=== PATIENT | male | born 1975 | race Caucasian/White ===

== ENCOUNTER 2020-09-25 21:05 | Observation (INO) | payer SELFPAY ==
[2020-09-25] MEDS: sodium chloride 0.9% 1,000 ML 999 ML IV (21:05)
[2020-09-25 21:10] VITALS: PULSE 144; RESP 32; O2SAT 97; BMI 23.6
[2020-09-25 21:23] VITALS: BP 175/108; PULSE 132; RESP 20; O2SAT 97
[2020-09-25 21:25] VITALS: BP 175/108; PULSE 121; O2SAT 98
--- NOTE | 2020-09-25 21:25 | XRR_ITS ---
PROCEDURE INFORMATION: Exam: XR Chest Exam date and time: 09/25/2020 9:39 PM Age: 44 years old Clinical indication: Chest wall pain; Patient HX: PT not responsive - no history; Additional info: Chest pain TECHNIQUE: Imaging protocol: XR of the chest. Views: 1 view. Total images: 1 COMPARISON: No relevant prior studies available. FINDINGS: Lungs: No visible active interstitial or alveolar airspace disease. Pleural spaces: Unremarkable. No pleural effusion. No pneumothorax. Heart/Mediastinum: Cardiac structures and configuration with status post sternotomy chest and CABG. Bones/joints: Unremarkable. XR/XR chest 1V portable [id number] IMPRESSION: Nonacute.
--- NOTE | 2020-09-25 21:26 | ECG_ITS ---
[facility] Test Date: 2020-09-25 Pat Name: Ryan Lopez Department: Room: 250 Gender: Male [employer]: : 1975 Requested By: Pedro Ribeiro Order Number: [id number] Chinyere MD: Lance Hollis M.D. Measurements Intervals [place] Rate: 126 P: 76 NH: 144 QRS: 48 QRSD: 92 T: 75 QT: 293 QTc: 424 Interpretive Statements SINUS TACHYCARDIA INDETERMINATE AXIS No previous ECG available for comparison Electronically Signed On 09-26-2020 17:32:43 CDT by Lance Hollis M.D. [id number]
[2020-09-25] MEDS: LORazepam 2 mg/mL INJ 1 mL (21:27)
--- NOTE | 2020-09-25 21:37 | W.ED.CHESTPA ---
HPI - Chest Pain General: Chief Complaint: Chest Pain Stated Complaint: CP/Possible heart attack Time Seen by Provider: 09/25/20 21:09 History of Present Illness: HPI narrative: 44-year-old male brought in by family. Family states they were driving back to [place] after picking him up in [facility]. About 30 to 40 minutes prior to arrival patient complained of chest pain. Upon arrival patient was shaking vigorously and what appeared to be like a pseudoseizure as he was somewhat responsive to verbal stimuli. He was however was very contracted. Family reports that he is a drug abuser. With known use of methamphetamine. Is unsure when his last methamphetamine abuse was. Patient himself does not provide any information. Review of Systems General: Reports: ROS unobtainable due to medical condition Course Vital Signs: Vital signs: Vital Signs Pulse Rate 102 H 09/25/20 21:54 Respiratory Rate 15 09/25/20 21:54 Blood Pressure 137/88 09/25/20 21:54 Pulse Oximetry 95 09/25/20 21:54 MDM - Chest Pain MDM Narrative: Medical decision making narrative: Patient with likely meth amphetamine reaction. Patient with decreased responsiveness following Ativan and is fatigued. Patient's tachycardia improved to around the low 100s mid 90s with IV fluids. Patient with elevated blood sugar. Patient will be admitted to Dr. mary for further work-up and management Lab Data: Attestation: I reviewed the patient's lab results. Labs: Lab Results 09/25/20 09/25/20 09/25/20 Range/Units 21:21 21:21 21:21 WBC 10.2 H (4.0-10.0) 10^3/ uL RBC 5.17 (4.1-5.3) 10^6/u L Hgb 16.7 H (11.7-16.6) g/dL Hct 47.7 (42.0-52.0) % MCV 92.3 (80-94) fL MCH 32.3 (28.0-34.0) pg MCHC 35.0 (30.0-36.0) g/dL RDW 12.0 L (12.1-15.1) % Plt Count 273 (130-400) 10^3/c mm MPV 10.5 H (7.4-10.4) fL Neut % (Auto) 52.7 % Lymph % (Auto) 38.3 % [place] % (Auto) 7.0 % Eos % (Auto) 1.5 % Baso % (Auto) 0.2 % Neut # (Auto) 5.35 (1.8-7.7) 10^3/u L Lymph # (Auto) 3.9 (0.8-4.8) 10^3/u L [place] # (Auto) 0.7 (0.2-0.9) 10^3/u L Eos # (Auto) 0.2 (0.0-0.8) 10^3/u L Baso # (Auto) 0.0 (0.0-0.1) 10^3/u L Nucleated RBC % (a uto) 0 % Nucleated RBCs # 0.0 /100WBC Specimen Type Sample Site ABG pH (7.35-7.45) ABG pCO2 (35-45) mmHg ABG pO2 (80.0-100.0) mmH g ABG HCO3 (22-26) mmol/L ABG Base Excess (-2.0-2.0) mmol/ L Jluis Test Hematocrit (42-52) % O2 Delivery Device Physician Coding Specialist ID Sodium 137 (136-145) mmol/L Potassium 4.4 (3.5-5.1) mmol/L Chloride 97 L (98-107) mmol/L Carbon Dioxide 18 L (22-29) mmol/L Anion Gap 26.4 H (5-19) BUN 14 (6-20) mg/dL Creatinine 0.9 (0.7-1.2) mg/dL GFR Calculation 91.7 (90-130) mL/min Glucose 459 H (65-115) mg/dL Calculated Osmolal ity 305 H (285-295) mOsm/k g Calcium 9.3 (8.5-10.5) mg/dL Magnesium 2.0 (1.7-2.3) mg/dL Total Bilirubin 0.3 (0.15-1.2) mg/dL AST 14 (0-40) U/L ALT 18 (0-41) U/L Alkaline Phosphata se 145 H (40-130) IU/L Troponin T Baselin e 14 (0-15) ng/L Total Protein 7.3 (6.6-8.7) g/dL Albumin 4.6 (3.5-5.2) g/dL Globulin 2.7 (1.3-4.6) g/dL Urine Color (Yellow) Urine Appearance (CLEAR) Urine pH (5-7) Ur Specific Gravit y (1.005-1.030) Urine Protein (Negative) Urine Glucose (UA) (Normal) Urine Ketones (Negative) Urine Blood (Negative) Urine Nitrate (Negative) Urine Bilirubin (Negative) Urine Urobilinogen (Negative) mg/dL Ur Leukocyte Yoanna ase (Negative) Urine RBC (0-2) /hpf Urine WBC (0-5) /hpf Ur Squamous Epith Cells (0-5) /hpf Amorphous Sediment Urine Bacteria (NONE) /hpf Urine Opiates Scre en (Negative) ng/mL Ur Barbiturates Sc reen (Negative) ng/mL Ur Phencyclidine S crn (Negative) ng/mL Ur Amphetamines Sc reen (Negative) ng/mL U Benzodiazepines Scrn (Negative) ng/mL Urine Cocaine Scre en (Negative) ng/mL U Marijuana (THC) Screen (Negative) ng/mL Ethyl Alcohol < 10 (0-10) mg/dL 09/25/20 09/25/20 09/25/20 Range/Units 21:52 21:52 22:15 WBC (4.0-10.0) 10^3/ uL RBC (4.1-5.3) 10^6/u L Hgb (11.7-16.6) g/dL Hct (42.0-52.0) % MCV (80-94) fL MCH (28.0-34.0) pg MCHC (30.0-36.0) g/dL RDW (12.1-15.1) % Plt Count (130-400) 10^3/c mm MPV (7.4-10.4) fL Neut % (Auto) % Lymph % (Auto) % [place] % (Auto) % Eos % (Auto) % Baso % (Auto) % Neut # (Auto) (1.8-7.7) 10^3/u L Lymph # (Auto) (0.8-4.8) 10^3/u L [place] # (Auto) (0.2-0.9) 10^3/u L Eos # (Auto) (0.0-0.8) 10^3/u L Baso # (Auto) (0.0-0.1) 10^3/u L Nucleated RBC % (a uto) % Nucleated RBCs # /100WBC Specimen Type Arterial Sample Site Radial, right ABG pH 7.42 (7.35-7.45) ABG pCO2 38.1 (35-45) mmHg ABG pO2 88.5 (80.0-100.0) mmH g ABG HCO3 24.7 (22-26) mmol/L ABG Base Excess 0.4 (-2.0-2.0) mmol/ L Jluis Test Pos Hematocrit 44.5 (42-52) % O2 Delivery Device Room air Physician Coding Specialist ID [email or web address] Sodium (136-145) mmol/L Potassium (3.5-5.1) mmol/L Chloride (98-107) mmol/L Carbon Dioxide (22-29) mmol/L Anion Gap (5-19) BUN (6-20) mg/dL Creatinine (0.7-1.2) mg/dL GFR Calculation (90-130) mL/min Glucose (65-115) mg/dL Calculated Osmolal ity (285-295) mOsm/k g Calcium (8.5-10.5) mg/dL Magnesium (1.7-2.3) mg/dL Total Bilirubin (0.15-1.2) mg/dL AST (0-40) U/L ALT (0-41) U/L Alkaline Phosphata se (40-130) IU/L Troponin T Baselin e (0-15) ng/L Total Protein (6.6-8.7) g/dL Albumin (3.5-5.2) g/dL Globulin (1.3-4.6) g/dL Urine Color Yellow (Yellow) Urine Appearance Clear (CLEAR) Urine pH 7 (5-7) Ur Specific Gravit y 1.005 (1.005-1.030) Urine Protein 1+ H (Negative) Urine Glucose (UA) 4+ H (Normal) Urine Ketones Negative (Negative) Urine Blood Neg (Negative) Urine Nitrate Negative (Negative) Urine Bilirubin Neg (Negative) Urine Urobilinogen Norm (Negative) mg/dL Ur Leukocyte Yoanna ase Negative (Negative) Urine RBC 0-4 H (0-2) /hpf Urine WBC Rare (0-5) /hpf Ur Squamous Epith Cells Rare (0-5) /hpf Amorphous Sediment Not Reportable Urine Bacteria None (NONE) /hpf Urine Opiates Scre en Negative (Negative) ng/mL Ur Barbiturates Sc reen Negative (Negative) ng/mL Ur Phencyclidine S crn Negative (Negative) ng/mL Ur Amphetamines Sc reen Positive H (Negative) ng/mL U Benzodiazepines Scrn Negative (Negative) ng/mL Urine Cocaine Scre en Negative (Negative) ng/mL U Marijuana (THC) Screen Negative (Negative) ng/mL Ethyl Alcohol (0-10) mg/dL Imaging Data^: CT Head: Attestation: I personally reviewed and interpreted this imaging study as follows: Radiologist's impression: IMPRESSION: No evidence of active or acute intracranial pathologic process, hemorrhage, or trauma. CXR: Attestation: I personally reviewed and interpreted this imaging study as follows: My impression: no acute process Radiologist's impression: no acute process EKG Data^: EKG 1: Attestation: I personally reviewed and interpreted this EKG as follows: EKG interpretation date: 09/25/20 EKG interpretation time: 21:19 Interpretation: sinus tachy, hr 1236, pr 144, no acute changes ABG Data^: ABG Interpretation 1: Attestation: I personally reviewed and interpreted this ABG as follows: Interpretation: normal abg Discharge Plan Discharge Patient Disposition: Admitted As Inpatient Clinical Impression: Dehydration, Hyperglycemia, Methamphetamine abuse Chest pain Qualifiers: Chest pain type: unspecified Qualified Code(s): R07.9 - Chest pain, unspecified Condition: Stable Coding Level of Care Code ED Wireless Watcher for Andrez Todd
[2020-09-25 21:40] LABS: Basophils % 0.2 %; Eosinophils # 0.2 10^3/uL (0.0-0.8); Eosinophils % 1.5 %; Hematocrit 47.7 % (42.0-52.0); Hemoglobin 16.7 g/dL (11.7-16.6); Lymphocytes # 3.9 10^3/uL (0.8-4.8); Lymphocytes % 38.3 %; Mean Corpuscular Hemoglobin 32.3 pg (28.0-34.0); Mean Corpuscular Volume 92.3 fL (80-94); Mean Platelet Volume 10.5 fL (7.4-10.4); Monocytes # 0.7 10^3/uL (0.2-0.9); Neutrophils # 5.35 10^3/uL (1.8-7.7); Neutrophils % 52.7 %; Nucleated Red Blood Cells % 0 %; Platelet Count 273 10^3/cmm (130-400); Red Blood Count 5.17 10^6/uL (4.1-5.3); White Blood Count 10.2 10^3/uL (4.0-10.0)
[2020-09-25 21:51] LABS: Alanine Aminotransferase 18 U/L (0-41); Albumin Level 4.6 g/dL (3.5-5.2); Alkaline Phosphatase 145 IU/L (40-130); Anion Gap 26.4 (5-19); Aspartate Amino Transferase 14 U/L (0-40); Blood Urea Nitrogen 14 mg/dL (6-20); Calcium 9.3 mg/dL (8.5-10.5); Carbon Dioxide 18 mmol/L (22-29); Chloride 97 mmol/L (98-107); Globulin 2.7 g/dL (1.3-4.6); Glomerular Filtration Rate 91.7 mL/min (90-130); Glucose 459 mg/dL (65-115); Osmolality Calculated 305 mOsm/kg (285-295); Potassium 4.4 mmol/L (3.5-5.1); Sodium 137 mmol/L (136-145); Total Bilirubin 0.3 mg/dL (0.15-1.2); Total Protein 7.3 g/dL (6.6-8.7)
[2020-09-25 21:53] LABS: Alcohol Level < 10 mg/dL (0-10)
[2020-09-25 21:54] VITALS: BP 137/88; PULSE 102; RESP 15; O2SAT 95
[2020-09-25 22:00] VITALS: BP 115/82; PULSE 104; RESP 19; O2SAT 94
[2020-09-25 22:09] LABS: Bilirubin Urine Neg (Negative); Blood Urine Neg (Negative); Glucose Urine UA 4+ (Normal); Ketones Urine Negative (Negative); Leukocyte Esterase Urine Negative (Negative); Nitrate Urine Negative (Negative); Protein Urine 1+ (Negative); Specific Gravity, Urine 1.005 (1.005-1.030); Urine Appearance Clear (CLEAR); Urine Color Yellow (Yellow); Urobilinogen Urine Norm (Negative); pH Urine 7 (5-7)
[2020-09-25 22:10] LABS: Add Urine Microscopic? YES; Amphetamines Screen Urine Positive (Negative); Barbiturates Screen Urine Negative (Negative); Benzodiazepines Screen Urine Negative (Negative); Cocaine Screen Urine Negative (Negative); Opiate Screen Urine Negative (Negative); PCP Screen Urine Negative (Negative); RBC Urine 0-4 /hpf (0-2); THC Screen Urine Negative (Negative)
[2020-09-25 22:11] LABS: Add Urine Culture? No; Squamous Epithelial Cell Urine RARE /hpf (0-5); WBC Urine RARE /hpf (0-5)
--- NOTE | 2020-09-25 22:12 | CTR_ITS ---
PROCEDURE INFORMATION: Exam: CT Head Without Contrast Exam date and time: 09/25/2020 10:14 PM Age: 44 years old Clinical indication: Altered mental status/memory loss; Patient HX: AMS. Presented to er for possible mi. Now unresponsive. History of cabg and seizure disorder. TECHNIQUE: Imaging protocol: Computed tomography of the head without contrast. Total images: 196 Radiation optimization: All CT scans at this facility use at least one of these dose optimization techniques: automated exposure control; mA and/or kV adjustment per patient size (includes targeted exams where dose is matched to clinical indication); or iterative reconstruction. COMPARISON: No relevant prior studies available. RADIATION DOSE METRICS: Total DLP (mGy-cm): 651.83 FINDINGS: Brain: No evidence of active or acute intracranial pathologic process, hemorrhage, or trauma. Unremarkable white matter. No mass effect. No midline shift. No cerebral edema. No visible hyperdense MCA or insular ribbon sign. Cerebral ventricles: No ventriculomegaly. Bones/joints: Unremarkable. No acute fracture. Paranasal sinuses: Visualized sinuses are unremarkable. No fluid levels. Mastoid air cells: Visualized mastoid air cells are well aerated. Soft tissues: Unremarkable. CT/CT head wo con* [id number] IMPRESSION: No evidence of active or acute intracranial pathologic process, hemorrhage, or trauma. Radiation Dose CTDIVOL = (mGy): DLP = 651.83 (mGy-cm)
[2020-09-25 22:21] LABS: Troponin(5th) Baseline 14 ng/L (0-15)
[2020-09-25 22:22] LABS: ABG PCO2 38.1 mmHg (35-45); ABG PH Result 7.42 (7.35-7.45); Arterial Blood Gas Hematocrit 44.5 % (42-52); Base Excess ABG 0.4 mmol/L (-2.0-2.0); Blood Gas Allen Test Pos; Blood Gas Sample Site Radial, right; Blood Gas Sample Type Arterial; HCO3 ABG 24.7 mmol/L (22-26); Oxygen Device ROOM AIR; PO2 ABG 88.5 mmHg (80.0-100.0)
[2020-09-25 23:44] VITALS: BP 133/110; PULSE 85; RESP 16; O2SAT 95
[2020-09-25 23:48] LABS: Ketone (Acetest) Serum Negative (Negative)
[2020-09-25 23:50] LABS: Lactate (Lactic Acid level) 1.1 mmol/L (0.5-2.2)
--- NOTE | 2020-09-25 23:56 | PM.HP ---
Providers/Chief Complaint Admitting Physician: Edilia Foote MD Chief Complaint: CP/Possible heart attack History of Present Illness Ryan Lopez is a 44 year old male who presented to the ER with chief complaint of chest pain. Today he was driving to [place] with his daughter when he started experiencing chest discomfort and tremors. His daughter got worried about [place] considering previous history of CABG, & brought him in the ER. Daughter stated that he used methamphetamine last night, he has history of polysubstance abuse, smokes half a pack a day. Daughter told ER physician that with his tremors he was able to communicate and give appropriate answers without any confusion. When patient arrived in the ER his hands were clenched, he was very rigid and tremulous, he was given 2 mg of Ativan to get an EKG which showed sinus tachycardia without any ischemic or infarct changes, troponin unremarkable, patient did complain of constant substernal chest discomfort which he is describing as pressure-like sensation, initially he was not cooperating for the interview however later on he told me that he noticed pressure-like sensation which was radiating towards his arm especially left arm with some numbness. he became very aggressive and defensive when I asked about recreational drug use. He was very upset that there is no family member at the bedside however I told him that daughter was here earlier left because she had court appearance in the morning. Review of Systems Const: Reports: chills, body aches and fatigue Eyes: Denies: change in vision ENMT: Denies: throat pain Card: Reports: chest pain Resp: Denies: dyspnea GI: Denies: abdominal pain : Denies: flank pain Musc: Denies: neck pain Skin/Breast: Reports: lesions Neuro: Reports: numbness in extremities Psych: Reports: anxiety Endo: Denies: polyuria Mitchell/Lymph: Denies: easy bruising All/Imm: Denies: urticaria Medications/Allergies Allergies Allergy/AdvReac Type Severity Reaction Status Date / Time No Known Allergies Allergy Verified 09/25/20 21:16 PFSH Acute PFSH: Medical History Breakthrough seizure Hypertension Nicotine dependence Polysubstance abuse Type 2 diabetes mellitus Surgical History Hx of CABG Family History Other CAD (coronary artery disease) Social History Smoking and tobacco status: current every day smoker cigarettes [ Other cigarette details: Half pack a day ] Alcohol intake: never Substance/Drug Use: current Substance/Drug use type: Methamphetamine Household members: family Housing: House Number of children: 5 Previous occupational history: otr company driver Vitals/I&O/Wt Last Vital Signs Pulse 85 09/25/20 23:44 Resp 16 09/25/20 23:44 BP 133/110 09/25/20 23:44 Pulse Ox 95 09/25/20 23:44 Weight last 48 hrs Weight 74.843 kg Physical Exam Narrative: EXAM NARRATIVE: Middle-age male who appears more than stated age No signs of active heart failure no active complaints He was sitting at the bedside No neurological deficits awake and alert no post ictal confusion noted, No tongue bite No urinary or rectal incontinence S1, S2 sinus tachycardia Abdomen soft nontender bowel sound present Bilateral breath sounds without adventitious rhonchi or crackles Patient appears very anxious and comes agitated and aggressive especially when asked about recreational drugs No vascular compromise of upper or lower extremities, EOMI, PERRLA No joint swelling Left toe amputation noted Pale complexion tip of digits and toes/Raynaud's phenomenon Data : 09/25/20 21:21 09/25/20 21:21 A&P Assessment and plan (1) Chest pain: Status: Acute Qualifiers: Chest pain type: unspecified Qualified Code(s): R07.9 - Chest pain, unspecified (2) Dehydration: Status: Acute (3) Hyperglycemia: Status: Acute (4) Methamphetamine abuse: Status: Acute Additional A&P Information Unstable angina EKG without ischemic or infarct changes, sinus tachycardia Troponin without significant elevation Previous history of CABG, patient does endorse noncompliance with his medications, smokes on daily basis, use methamphetamine yesterday, he endorsed to snorting meth No active chest discomfort, hemodynamically stable Monitor overnight with telemetry Continue fluid resuscitation His symptoms improved after getting Ativan 2 mg, will request prolactin level to rule out breakthrough seizure episode however no postictal state witnessed, as per the daughter he was able to make sense and answer appropriately during his tremors which is very unusual if he had a seizure Check Depakote level Would not start ACS protocol Check echo in the morning to rule out wall motion abnormality Methamphetamine abuse Does show signs of dehydration, sinus tachycardia very well be secondary to methamphetamine abuse Currently hemodynamically stable would avoid adding any AV manuelito blocking agent for now, preferably would use Ativan if needed Hyperglycemia without DKA High anion gap however lactic acid is normal ABG without acidosis We will continue on moderate sliding scale check hemoglobin A1c level to see if he would qualify for insulin Cardiac diet/consistent carb DVT prophylaxis Lovenox Full code Attestations Medical Necessity Statement*: Overnight monitoring because of history of CABG currently hemodynamically stable but came with chief complaint of unstable angina, methamphetamine abuse Time Spent in Patient Care: 30mins Coding Level of Care Code [facility] Assistant for [place] Peyton Diagnoses Chest pain R07.9 Chest pain type: unspecified Dehydration E86.0 Hyperglycemia R73.9 Methamphetamine abuse F15.10
[2020-09-26] VITALS (10 sets, daily range): BP systolic 78–155; BP diastolic 50–94; PULSE 57–83; RESP 16–19; TEMP 36.5–37; O2SAT 97–100
--- NOTE | 2020-09-26 01:19 | USCV_ITS ---
Ryan Lopez Age: 44 Gender: M : 1975 Exam Date: 09/26/2020 08:20 Ordering Phys: Edilia Foote MD Technologist: Radha Gleason [place] [facility] [place]ication: CHEST PAIN BP: 117 / 76 HR: 82 Rhythm: Sinus Technical Quality: Good MEASUREMENTS (Male / Female) Normal Values 2D ECHO LV Diastolic Diameter PLAX 5.0 cm 4.2 - 5.9 / 3.9 - 5.3 cm LV Systolic Diameter PLAX 3.3 cm IVS Diastolic Thickness 0.9 cm 0.6 - 1.0 / 0.6 - 0.9 cm IVS Systolic Thickness 1.4 cm LVPW Diastolic Thickness 0.8 cm 0.6 - 1.0 / 0.6 - 0.9 cm LVPW Systolic Thickness 1.7 cm LV Ejection Fraction 2D Teich 61.8 % LV Ejection Fraction MOD 2C 65.4 % LV Ejection Fraction 2C AL 69.4 % LA Diameter 2.8 cm LA Width 3.1 cm LA Height 4.6 cm RA Width 3.5 cm RA Height 3.5 cm Aorta at Sinotubular Diameter 3.2 cm M-MODE LV Diastolic Diameter MM 5.5 cm 4.2 - 5.9 / 3.9 - 5.3 cm LV Systolic Diameter MM 3.9 cm LV Ejection Fraction MM Teich 57.2 % IVS Diastolic Thickness MM 1.0 cm 0.6 - 1.0 / 0.6 - 0.9 cm IVS Systolic Thickness MM 1.3 cm LVPW Diastolic Thickness MM 1.0 cm 0.6 - 1.0 / 0.6 - 0.9 cm LVPW Systolic Thickness MM 1.4 cm Aortic Annulus Diameter 3.6 cm LA Ao Ratio MM 0.8 MV E Point Septal Separation 0.3 cm DOPPLER AV Peak Velocity 97.0 cm/s LVOT Peak Velocity 101.0 cm/s MV Peak Velocity 86.0 cm/s MV Area PHT 5.0 cm squared Mitral E to A Ratio 1.6 MV E' Velocity 39.5 cm/s Mitral E to MV E' Ratio 6.5 Mitral E to LV E' Lateral Ratio 4.9 Mitral E to LV E' Septal Ratio 9.8 PV Peak Velocity 87.0 cm/s RV Acceleration Time 0.1 s RV Ejection Time 0.3 s RV AcT/ET 0.2 FINDINGS Left Ventricle Normal left ventricular size, systolic function and wall thickness, with no regional wall motion abnormalities. Left ventricular ejection fraction is estimated at 70 %. Normal diastolic function. Right Ventricle Normal right ventricular size and systolic function. RVSP could not be calculated due to incomplete tricuspid regurgitation velocity profile. Right Atrium Right atrial pressure estimated at 3 mmHg. Left Atrium Normal left atrial size. Mitral Valve Structurally normal mitral valve. No mitral valve stenosis. Trace mitral valve regurgitation. Aortic Valve Structurally normal trileaflet aortic valve. No aortic valve stenosis. No aortic valve regurgitation. Tricuspid Valve Structurally normal tricuspid valve. No tricuspid valve stenosis. No significant tricuspid valve regurgitation. Pulmonic Valve Structurally normal pulmonic valve. No pulmonary valve stenosis. No significant pulmonary valve regurgitation. Pericardium No pericardial effusion. Aorta Normal size aortic root and proximal ascending aorta. Normal- sized inferior vena cava. CONCLUSIONS 1. Normal left ventricular size, systolic function and wall thickness, with no regional wall motion abnormalities. Left ventricular ejection fraction is estimated at 70 %. Normal diastolic function. 2. Normal right ventricular size and systolic function. 3. No significant valvular abnormality. 4. No prior similar studies to compare. Pau Coats MD (Electronically Signed) Final Date: 26 Sep 2020 18:20 S
[2020-09-26] MEDS: enoxaparin 40 mg/0.4 mL Syringe SUBCUT (01:35)
[2020-09-26] MEDS: sodium chloride 0.9% 1,000 ML 100 ML IV ×2 (01:35→11:05)
[2020-09-26 01:41] LABS: Valproic Acid Level 2.8 ug/mL (50-100)
[2020-09-26 01:51] LABS: Anion Gap 14.9 (5-19); Blood Urea Nitrogen 13 mg/dL (6-20); Calcium 8.1 mg/dL (8.5-10.5); Carbon Dioxide 22 mmol/L (22-29); Chloride 102 mmol/L (98-107); Creatinine Clr Calc Pharmacy 122.8953; Glucose 398 mg/dL (65-115); Osmolality Calculated 297 mOsm/kg (285-295); Potassium 3.9 mmol/L (3.5-5.1); Prolactin 9.55 ng/mL (4.0-15.2); Sodium 135 mmol/L (136-145); Thyroid Stimulating Hormone 0.85 uIU/mL (0.27-4.20)
[2020-09-26 02:19] LABS: Estmated Average Glucose 335; Hemoglobin A1C 13.3 % (4.0-6.0)
[2020-09-26 06:19] LABS: Glucose Point of Care 248 mg/dL (70-110)
[2020-09-26] MEDS: ARIPiprazole 10 mg Tablet 5 MG PO (07:52)
[2020-09-26] MEDS: clopidogrel 75 mg Tablet PO (07:53)
[2020-09-26] MEDS: lisinopril 5 mg Tablet PO (07:53)
[2020-09-26] MEDS: metoprolol succinate ER (24 HR) 25 mg Tablet PO (07:53)
[2020-09-26] MEDS: aspirin 81 mg EC Tablet PO (07:53)
[2020-09-26] MEDS: divalproex DR 500 mg Tablet 1000 MG PO ×2 (08:01→18:16)
--- NOTE | 2020-09-26 09:53 | PC.CHAP ---
Pastoral Care Encounter/Spiritual Assessment Type of Contact [] Declined donor floor technician visit [] Patient/Family/Request visit [] Outpatient visit [] Follow-up visit [] Physician referral [] Code/Alert [x] Routine visit [] Staff referral [] Actively dying [] Patient sleeping [] Family support [] [] Out of room [] Palliative care [] [x] Receiving care in room [] Pre-surgical visit [] Trauma [] Long length of stay [] ICU visit [] Other: Relational/Emotional Strength [] Patient feels connected with others/family/visitors/staff [] Distress [] Loneliness/isolation [] Abandonment Spirituality of Patient [] Person of Angelique [] Attends Adventist of their Angelique [] Believes in Prayer [] Reads Bible or Church materials [] There are Spiritual issues to be addressed Software Engineering Manager Interventions [] Prayer [] Active listening [] Non-anxious presence [] Spiritual/emotional support [] Crisis/trauma care [] Spiritual counseling [] Bereavement support [] Provided bereavement packet [] Provided Bible/devotional materials [] Provided toy/stuffed animal, coloring book to patient or family member [] Provided Communion [] Anointing/[place] [] Salvation [] Completed spiritual assessment [] Other: Impact on Illness or Injury [] Angry [] Fearful [] Anxious [] Often cries [] Exhaustion [] Unable to work [] Unable to attend tenriism [] Unable to walk/stand [] Unable to read [] Unable to drive [] Unable to eat/drink [] Unable to sleep [] Unable to be with family [] Patient intubated [] Other: Summary Time spent with patient
[2020-09-26 10:58] LABS: Glucose Point of Care 230 mg/dL (70-110)
--- NOTE | 2020-09-26 11:53 | P.PN_ITS ---
Subjective Subjective: Interval history: Patient was seen and examined this morning, he continued to complain of left-sided chest pain according to him he has this chest pain since after his CABG back in August 2019.According to him The chest pain has progressively worsened, currently he is also complaining of chest pain with minimal exertion. Vitals/I&O/Wt Last Vital Signs Temp 97.7 F 09/26/20 07:05 Pulse 81 09/26/20 07:05 Resp 18 09/26/20 07:05 BP 126/71 09/26/20 07:05 Pulse Ox 98 09/26/20 07:05 09/25/20 09/26/20 09/26/20 22:59 06:59 14:59 Intake Total 60 / 60 1310 / 1310 Balance 60 / 60 1310 / 1310 Weight last 48 hrs Weight 74.843 kg Physical Exam Const: COMMON NORMALS: patient oriented x3 HENMT: COMMON NORMALS: normocephalic and atraumatic HEAD & SCALP: normocephalic and atraumatic Chest: CHEST: Yes Symmetrical chest wall rise Resp: COMMON NORMALS: normal respiratory effort and clear to auscultation bilaterally EFFORT & INSPECTION: Yes symmetric chest movement AUSCULT ATION: clear to auscultation bilaterally Cardio: COMMON NORMALS: regular rate, regular rhythm, S1 normal heart sound present, S2 normal heart sound present, No gallops present (Cardio), No murmurs present (Cardio), No rub (Cardio) and Peripheral pulses 2+ throughout RATE: regular rate RHYTHM: regular rhythm HEART SOUNDS: S1 normal heart sound present and S2 normal heart sound present PERIPHERAL PULSES: Peripheral pulses 2+ throughout GI: COMMON NORMALS: Normal to inspection, nondistended, normoactive bowel sounds present, Soft to palpation, non-tender, No hepatosplenomegaly present and no masses AUSCULTATION: Yes normoactive bowel sounds PALPATION: Yes Soft to palpation and Yes No hepatosplenomegaly present RECTAL EXAM: Yes deferred Extremity: COMMON NORMALS: no clubbing, cyanosis or edema and no pedal edema Neuro: COMMON NORMALS: patient oriented x3 Data : 09/25/20 21:21 09/26/20 00:00 A&P Assessment and plan (1) Chest pain: Typical cardiac chest pain, likely chronic stable angina. EKG has failed to show any acute ST-T wave changes. Troponin trend has been flat. 2D echo: Normal LV size and systolic function, LVEF 70%, no RWMA, no significant valvular abnormality.Continue. Aspirin 81 mg p.o. daily Plavix 75 mg orally Atorvastatin 40 mg p.o. daily Metoprolol succinate 25 mg p.o. daily Sublingual nitro as needed Will initiate IMDUR 30 MG PO Daily Possible stress test as an outpatient. Status: Acute Qualifiers: Chest pain type: unspecified Qualified Code(s): R07.9 - Chest pain, unspecified (2) Uncontrolled diabetes mellitus: Uncontrolled diabetes likely secondary to medication non compliance. HbA1c: 13 MDSSI Monitor fingerstick glucose We will start him on Metformin and glipizide as outpatient. Status: Acute (3) Seizure: Patient valproic acid level is : 2.8 : Noncompliant with his seizure medication. valproic acid 1000 mg every 12 hours daily. Repeat valproic acid Neurology follow-up as an outpatient. Status: Acute (4) Dehydration: Status: Acute (5) Methamphetamine abuse: Status: Acute (6) Polysubstance abuse: Status: Acute Additional A&P Information Unstable angina EKG without ischemic or infarct changes, sinus tachycardia Troponin without significant elevation Previous history of CABG, patient does endorse noncompliance with his medications, smokes on daily basis, use methamphetamine yesterday, he endorsed to snorting meth No active chest discomfort, hemodynamically stable Monitor overnight with telemetry Continue fluid resuscitation His symptoms improved after getting Ativan 2 mg, will request prolactin level to rule out breakthrough seizure episode however no postictal state witnessed, as per the daughter he was able to make sense and answer appropriately during his tremors which is very unusual if he had a seizure Check Depakote level Would not start ACS protocol Check echo in the morning to rule out wall motion abnormality Methamphetamine abuse Does show signs of dehydration, sinus tachycardia very well be secondary to methamphetamine abuse Currently hemodynamically stable would avoid adding any AV manuelito blocking agent for now, preferably would use Ativan if needed Hyperglycemia without DKA High anion gap however lactic acid is normal ABG without acidosis We will continue on moderate sliding scale check hemoglobin A1c level to see if he would qualify for insulin Cardiac diet/consistent carb DVT prophylaxis Lovenox Full code Attestations Medical Necessity Statement*: Patient needs to be in hospital for the management of chest pain. 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
--- NOTE | 2020-09-26 16:15 | PC.NURSE ---
LILIAN CAME TO [employer]ESS[employer] WITH BP OF 78/50, S[employer] PSYCHOLOG[employer] PROFESSOR TOOK BP MANUALLY IT WAS 92/58, DR DAMON PRESENT, BP TAKEN AGAIN AND WAS FOUND TO BE 102/64, MD AWARE AND WILL CONTINUE TO MONITOR
[2020-09-26 17:05] LABS: Glucose Point of Care 244 mg/dL (70-110)
--- NOTE | 2020-09-26 21:06 | PC.NURSE ---
pt angry after talking with family on the phone and requesting iv to be removed. iv removed, ama paperwork signed and pt escorted out of the building.
[2020-09-26 21:21] LABS: Glucose Point of Care 319 mg/dL (70-110)
--- NOTE | 2020-09-27 17:15 | P.EN_ITS ---
Event Note Event Note: 44 year old male who presented to the ER with chief complaint of chest pain. While he was driving to [place] with his daughter when he started experiencing chest discomfort and tremors. His daughter got worried about AL considering previous history of CABG, & brought him in the ER. Daughter stated that he used methamphetamine last night, he has history of polysubstance abuse, smokes half a pack a day. Daughter told ER physician that with his tremors he was able to communicate and give appropriate answers without any confusion. When patient arrived in the ER his hands were clenched, he was very rigid and tremulous, he was given 2 mg of Ativan to get an EKG which showed sinus tachycardia without any ischemic or infarct changes, troponin unremarkable, patient did complain of constant substernal chest discomfort which he is describing as pressure-like sensation. He was admitted for the management of chest pain, as well as possible breakthrough seizure, during the hospital stay EKG without ischemic or infarct changes, sinus tachycardia Troponin without significant elevation. Previous history of CABG, patient does endorse noncompliance with his medications, smokes on daily basis, use methamphetamine. During the hospital stay , he was continued to be monitored on telemetry, no abnormal rhythm noted, 2D echo was grossly normal, upon further interview he revealed he continued to complain of left-sided chest pain according to him he has this chest pain since after his CABG back in August 2019.According to him The chest pain has progressively worsened, currently he is also complaining of chest pain with minimal exertion.he was continued on aspirin 81 mg p.o. daily Plavix 75 mg orally Atorvastatin 40 mg p.o. daily Metoprolol succinate 25 mg p.o. daily Sublingual nitro as needed, plan was to initiate initiate IMDUR 30 MG PO Daily once the blood pressure has stabilized and possible stress test as outpatient. For his history of seizure serum valproic acid was subtherapeutic at 2.8 noted to be noncompliant with his seizure medication he was kept on valproic acid 1000 mg every 12 hours daily, plan was to continue valproic acid and repeat the serum valproic acid level in a week for further dose adjustment, keeping eye on the side effects which includes ataxia, rarely Oneill-Addi syndrome, plan was to do repeat CBC CMP in a week time. For his uncontrolled diabetes likely secondary to medication noncompliance his HbA1c was 13 he was kept on medium dose sliding scale insulin with fingerstick monitoring, plan was to initiate outpatient Metformin and glipizide for possible insulin and follow-up with his primary care physician.Patient was also appropriately IV hydrated for his dehydration. Unfortunately patient decided to sign himself out as an AMA. He was explained the risk and benefit by the night team.
== END 2020-09-26 20:55 | disposition home or self-care (01) ==
LOC: ER 23:20 → MEDSURG 09-26 03:40
PROVIDERS: Admitting Provider Internal Medicine; Emergency Provider Student in an Organized Health Care Education/Training Program; Visit Provider Internal Medicine
DX: R07.9 Chest pain, unspecified (principal); E86.0 Dehydration; R73.9 Hyperglycemia, unspecified; F15.10 Other stimulant abuse, uncomplicated; F19.10 Other psychoactive substance abuse, uncomplicated; Z95.1 Presence of aortocoronary bypass graft; F17.210 Nicotine dependence, cigarettes, uncomplicated; I10 Essential (primary) hypertension; E11.9 Type 2 diabetes mellitus without complications; Z82.49 Family history of ischemic heart disease and other diseases of the circulatory system; I20.0 Unstable angina
CPT/HCPCS: 36415; 36416; 36600; 70450; 71045; 80048; 80053; 80164; 80306; 80307; 81001; 82009; 82803; 82962; 83036; 83605; 83735; 84146; 84443; 84484; 85025; 93005; 93306; 96360; 96372; 99285; G0378; J1650; J1815; J2060; J7030